=== PATIENT | male | born 1985 | race Native Hawaiian/Other Pacific Islander ===

== ENCOUNTER 2016-07-01 21:14 | Emergency (ER) | payer MEDICAID ==
[2016-07-01 21:20] VITALS: BP 114/75; RESP 16; TEMP 98.2; O2SAT 99
[2016-07-01] MEDS ORDERED: Oxycodone/Acetaminophen 5/325 mg Tab PO STA (21:26)
[2016-07-01] MEDS ORDERED: Oxycodone/Acetaminophen 5/325 mg Tab ONE (21:43)
--- NOTE | 2016-07-01 22:29 | ED PDOC ---
Lower Extremity Pain/Injury Time Seen by Provider: 07/01/16 22:25 Chief Complaint (Nursing): Lower Extremity Problem/Injury Chief Complaint (Provider): right leg pain History Per: Patient History/Exam Limitations: no limitations Additional Complaint(s): 31yo M i Ed for eval of left leg pain after playing soccer- someone hit his lower leg noted a " crack" to knee and has not been able to move his knee, with some swelling to knee and sharp shooting pain. no hip pain no skin break Past Medical History Reviewed: Historical Data, Nursing Documentation, Vital Signs Vital Signs: Last Vital Signs Temp 98.2 F 07/01/16 21:18 Pulse 110 H 07/01/16 21:18 Resp 16 07/01/16 21:18 BP 114/75 07/01/16 21:18 Pulse Ox 99 07/01/16 21:18 - Medical History PMH: No Chronic Diseases - Family History Family History: States: No Known Family Hx - Home Medications Home Medications: Ambulatory Orders Medication Instructions Recorded Tramadol HCl [Ultram] 50 mg PO Q6 #15 tab 07/01/16 - Allergies Allergies/Adverse Reactions: Allergies Allergy/AdvReac Type Severity Reaction Status Date / Time No Known Allergies Allergy Verified 07/01/16 21:17 Wells Criteria for PE - Wells Criteria for Pulmonary Embolism Clinical Signs and Symptoms of DVT: No P.E is #1 Diagnosis, or Equally Likely: No Heart Rate >100: No Immobilization at least 3 days;Surgery previous 4 weeks: No Previous, objectively diagnosed PE or DVT: No Hemoptysis: No Malignancy w/treatment within 6 months, or palliative: No Total Score: 0 Review of Systems ROS Statement: Except As Marked, All Systems Reviewed And Found Negative Musculoskeletal: Positive for: Leg Pain, Foot Pain Physical Exam - Reviewed Nursing Documentation Reviewed: Yes Vital Signs Reviewed: Yes - Physical Exam Appears: Positive for: Non-toxic, No Acute Distress, Uncomfortable Head Exam: Positive for: ATRAUMATIC, NORMAL INSPECTION, NORMOCEPHALIC Skin: Positive for: Normal Color, Warm, DRY Cardiovascular/Chest: Positive for: Regular Rate, Rhythm Respiratory: Positive for: CNT, Normal Breath Sounds Extremity: Positive for: Other (right LE: no swelilng to ankle an kle and foot nontnedner. unabkle to range at knee mild effusion noted at knee skin is intact. good pulses) Neurologic/Psych: Positive for: Alert, Oriented - ECG O2 Sat by Pulse Oximetry: 99 - Radiology X-Ray: Interpreted by Me X-Ray Interpretation: Fracture (? fx noted only on lateral view to medial aspect of tibia) - Progress ED Course And Treament: impression knee injury will give perocet for pain and xrya Medical Decision Making Medical Decision Making: Pt will need a knee immobilizer and f.u with orthopedics for CT or MRI. and will be given pain control stable appearing and improved pain control in ED. Disposition - Clinical Impression Clinical Impression: Knee injury - Patient ED Disposition Is Patient to be Admitted: No Counseled Patient/Family Regarding: Studies Performed, Diagnosis, Need For Followup, Rx Given - Disposition Referrals: [facility] [Outside] [facility] [place] [Outside] Disposition: Routine/Home Disposition Time: 23:51 Condition: STABLE Prescriptions: Tramadol HCl [Ultram] 50 mg PO Q6 #15 tab Instructions: Knee Immobilizer (ED)
[2016-07-02 00:10] VITALS: PULSE 84
--- NOTE | 2016-07-02 09:56 | RAD ---
PROCEDURE: Right Knee Radiographs. AP, obliques and cross-table lateral views of the right knee performed. HISTORY: knee injury COMPARISON: None. FINDINGS: BONES: Normal. No fracture. JOINTS: Normal. No osteoarthritis. JOINT EFFUSION: None. OTHER FINDINGS: None. IMPRESSION: No acute fracture seen. If symptoms persist or occult fracture suspected clinically recommend repeat radiographs in 5-10 days as most fractures should become radiographically evident in this timeframe
--- NOTE | 2016-07-02 10:47 | RAD ---
PROCEDURE: Right Ankle Radiographs. HISTORY: injury COMPARISON: None FINDINGS: BONES: Normal. No fracture. JOINTS: Normal. No osteoarthritis. Ankle mortise maintained. Talar dome intact SOFT TISSUES: Normal. OTHER FINDINGS: None. IMPRESSION: Normal right ankle radiographs. Consider repeat radiographs 5-10 days if symptoms persist or occult fracture suspected clinically as most fractures should become radiographically evident in this timeframe.
--- NOTE | 2016-07-02 12:44 | RAD ---
PROCEDURE: Right Foot Radiographs. Limited lateral view of the right foot performed. Patient was unable to bend knee 2 on performed AP PA and oblique views of the right foot. HISTORY: injury COMPARISON: None. FINDINGS: BONES: No obvious acute displaced fracture nor dislocation however when possible follow-up/repeat PA and oblique views of the right foot recommended. JOINTS: Normal. SOFT TISSUES: Normal. OTHER FINDINGS: None. IMPRESSION: Very limited single lateral view study as detailed above. . No obvious acute displaced fracture nor dislocation on this single lateral view however when possible follow-up/repeat PA and oblique views of the right foot recommended.
== END 2016-07-02 00:10 | disposition home or self-care (01) ==
LOC: H.ER 21:14
DX: S89.92XA Unspecified injury of left lower leg, initial encounter (principal); X50.9XXA Other and unspecified overexertion or strenuous movements or postures, initial encounter; Y92.322 Soccer field as the place of occurrence of the external cause